=== PATIENT | female | born 1990 | race Caucasian/White ===

== ENCOUNTER → 2016-11-19 | Outpatient (CLI) | payer OTHER | LOC: RESP 17:17 | PROVIDERS: ATTEND Nurse Practitioner Family | DX: E66.9 Obesity, unspecified (principal); R00.0 Tachycardia, unspecified; Z68.39 Body mass index [BMI] 39.0-39.9, adult ==

== ENCOUNTER 2018-07-16 12:01 | Emergency (ER) | payer OTHER ==
[2018-07-16 12:30] VITALS: TEMP 98.4; O2SAT 97
--- NOTE | 2018-07-16 12:32 | ED.PDOC ---
History of Present Illness - General Chief Complaint: CLAIMS CLERK Problem Stated Complaint: vaginal discharge, Time Seen by Provider: 07/16/18 12:21 Source: patient, RN notes reviewed, Vital Signs reviewed Additional Information: 28 YEAR OLD WHITE FEMALE AB2 NOW 11 WEEKS HERE WITH COMPLAINTS OF YELLOW GREEN VAGINAL DISCHARGE DENIES BLEEDING DENIES PASSING TISSUE DENIES ABDOMINAL CRAMPS DENIES SHOULDER PAIN OR DIZZINESS SHE HAS NO OB JUST MOVED FROM [facility] - History of Present Illness Timing/Duration: 1 week Severity: mild Improving Factors: nothing Worsening Factors: nothing Associated Symptoms: denies symptoms Allergies/Adverse Reactions: Allergies NO KNOWN ALLERGY Allergy (Verified 07/08/14 12:42) Home Medications: Ambulatory Orders Vit W/ Ferrous Fumara [] 1 tab PO DAILY 07/16/18 Review of Systems - Review of Systems Constitutional: States: no symptoms reported EENTM: States: no symptoms reported Respiratory: States: no symptoms reported Cardiology: States: no symptoms reported Gastrointestinal/Abdominal: States: no symptoms reported Genitourinary: States: see HPI Musculoskeletal: States: no symptoms reported Skin: States: no symptoms reported Neurological: States: no symptoms reported Endocrine: States: no symptoms reported Past Medical History (General) - Patient Medical History Hx Stroke: No Hx Congestive Heart Failure: No Hx Diabetes: No Surgical History: tonsillectomy - Vaccination History Hx Influenza Vaccination: No - Social History Hx Tobacco Use: Yes - Female History Patient is a Female of Child Bearing Age (10 -59 yrs old): Yes Patient : Yes Hx Gestational Age: 11 Family Medical History - Family History Maternal Living Status: Unknown Hx Family Cancer: Yes - breast, rectal Physical Exam - Physical Exam General Appearance: Alert, Comfortable Eye Exam: bilateral normal Ears, Nose, Throat: hearing grossly normal, normal ENT inspection, normal pharynx Neck: non-tender, full range of motion, supple Respiratory: chest non-tender, lungs clear, normal breath sounds, no respiratory distress, no accessory muscle use Cardiovascular/Chest: normal peripheral pulses, regular rate, rhythm, no edema, no gallop Peripheral Pulses: radial,right: 2+, radial,left: 2+, femoral,right: 2+, femoral ,left: 2+, popliteal,right: 2+, popliteal,left: 2+ Gastrointestinal/Abdominal: normal bowel sounds, non tender, soft Back Exam: normal inspection, no CVA tenderness, no vertebral tenderness Extremity: normal range of motion, non-tender Neurologic: spool fixer II-XII nml as tested, no motor/sensory deficits Skin Exam: normal color, warm/dry Lymphatic: no adenopathy Progress - Results/Orders Results/Orders: Laboratory Tests 07/16/18 07/16/18 07/16/18 12:45 12:50 12:50 WBC 9.6 RBC 4.65 Hgb 13.7 Hct 39.4 MCV 84.8 MCH 29.4 MCHC 34.7 RDW 13.1 Plt Count 229 MPV 8.7 Absolute Neuts (auto) 7.30 H Absolute Lymphs (auto) 1.70 Absolute Monos (auto) 0.40 Absolute Eos (auto) 0.10 Absolute Basos (auto) 0.10 Neutrophils % 76.1 Lymphocytes % 17.6 L Monocytes % 4.3 Eosinophils % 1.3 Basophils % 0.7 Sodium 137 Potassium 3.5 L Chloride 107 Carbon Dioxide 22 Anion Gap 11.5 L BUN 8 Creatinine < 0.40 L BUN/Creatinine Ratio 20.0 Random Glucose 104 Serum Osmolality 272.5 L Calcium 9.3 Total Bilirubin 0.3 AST 27 ALT 34 Alkaline Phosphatase 84 Serum Total Protein 7.3 Albumin 3.7 Globulin 3.6 H Albumin/Globulin Ratio 1.0 L Beta HCG, Quant 267159.0 H Urine Color Yellow Urine Appearance Sl cloudy Urine pH 6.0 Ur Specific [place] 1.025 Urine Protein Negative Urine Glucose (UA) Negative Urine Ketones 40 H Urine Blood Negative Urine Nitrite Negative Urine Bilirubin Negative Urine Urobilinogen 0.2 Ur Leukocyte Esterase Trace H Urine RBC 0 Urine WBC 0-1 Ur Epithelial Cells 5-10 Urine Bacteria 1+ OB USS 12 WEEKS EDC 28 JAN 2019 Departure - Departure Clinical Impression: Normal IUP (intrauterine ) on ultrasound Time of Disposition: 14:56 Disposition: Discharge to Home or Self Care Condition: Good Departure Forms: ED Discharge - Pt. Copy, Patient Portal Self Enrollment Diet: resume usual diet Home Medications: Ambulatory Orders Vit W/ Ferrous Fumara [] 1 tab PO DAILY 07/16/18
--- NOTE | 2018-07-16 15:06 | US ---
EXAM DESCRIPTION: OB ,Early (0-14wks) CLINICAL HISTORY: PAIN COMPARISON: None. TECHNIQUE: Real-time sonographic images of the pelvis are obtained transabdominally. FINDINGS: The uterus measures 16.8 x 7.8 x 1.1 cm. The uterus is normal positioning. Intrauterine gestational sac containing single embryo is seen. Normal amniotic fluid is seen. Placenta location cannot be determined at this time. heart rate is 157 bpm. [place]-rump length measures 5.3 cm consistent with estimated gestational age by ultrasound of 12 weeks 0 days. anatomy is limited. HEVER by LMP is February 03, 2019. HEVER by ultrasound is January 28, 2019. The ovaries are not visualized because of overlying bowel gas. No abnormal adnexal mass or fluid collection is seen. IMPRESSION: There is an early single living intrauterine fetus with estimated gestational age by ultrasound of 12 weeks 0 days. Normal heart rate is noted. No complicating features. Electronically signed by: Derrick Cage MD 07/16/2018 3:04 PM [employer] PROFESSIONAL
[2018-07-16 15:26] VITALS: BP 124/74
== END 2018-07-16 15:26 | disposition home or self-care (01) ==
LOC: ER 12:01
DX: Z34.81 Encounter for supervision of other normal pregnancy, first trimester (principal); Z3A.11 11 weeks gestation of pregnancy; Z87.891 Personal history of nicotine dependence

== ENCOUNTER 2018-08-17 09:31 | Emergency (ER) | payer OTHER ==
[2018-08-17 09:45] VITALS: TEMP 99.5
--- NOTE | 2018-08-17 10:18 | ED.PDOC ---
History of Present Illness - General Chief Complaint: Back Pain or Injury Stated Complaint: low back pain; 16 weeks gestation Time Seen by Provider: 08/17/18 09:41 Source: patient Exam Limitations: no limitations - History of Present Illness Initial Comments: Ana Lee 28 y/o female presently 16 w ega IUP LMP-29 Apr 2018 came to ER with constant sharp non radiating low back pain for the 4 days .No vaginal bleeding,no abdominal pain.Stated had previous back injury as a teenager in high school.Denies recent injury.No fever,no weight loss. Timing/Duration: intermittent, other - see hpi Quality/Severity: sharpness Back Pain Location: lumbar spine Back Pain Radiation: other - none Method of Injury/Prior Injury: other - see hpi Improving Factors: rest Allergies/Adverse Reactions: Allergies NO KNOWN ALLERGY Allergy (Verified 07/08/14 12:42) Home Medications: Ambulatory Orders Vit W/ Ferrous Fumara [] 1 tab PO DAILY 07/16/18 Acetamin W/Cod #3 Tab [Tylenol w/CODEINE #3] 1 ea PO TID PRN #14 tab 08/17/18 Sulfa/Trimeth 800/160 (Ds) Tab [Bactrim DS] 1 tablet PO BID #14 tab 08/17/18 Review of Systems - Review of Systems Musculoskeletal: States: see HPI, back pain All other Systems: Reviewed and Negative, No Change from Baseline Past Medical History (General) - Patient Medical History Hx Stroke: No Hx Congestive Heart Failure: No Hx Diabetes: No Surgical History: tonsillectomy, other - D and C - Vaccination History Hx Influenza Vaccination: No - Social History Hx Tobacco Use: Yes - Female History Hx Last Menstrual Period: 04/29/18 Patient : Yes Expected Date of Delivery:: 01/28/18 Hx Gestational Age: 11 Family Medical History - Family History Maternal Living Status: Unknown Hx Family Cancer: Yes - breast, rectal Physical Exam - Physical Exam General Appearance: Alert, Anxious, Comfortable, No apparent distress Eyes, Ears, Nose, Throat Exam: normal ENT inspection, pharynx normal Neck Exam: non-tender, full range of motion, normal alignment, normal inspection Cardiovascular/Respiratory: regular rate, rhythm, no M/R/G, normal peripheral pulses, no JVD, normal breath sounds Peripheral Pulses: radial,right: 2+, radial,left: 2+ Gastrointestinal/Abdominal: normal bowel sounds, non tender, soft, no organomegaly, other - Gravid uterus ;FHR-160 Back Exam: normal inspection, no CVA tenderness, no vertebral tenderness, muscle spasm - lumbo sacral muscles Extremity Exam: no evidence of injury, normal range of motion Neurologic: no motor/sensory deficits, alert, oriented x 3, other - SLR- negative bilaterally;DTR 2 + knee jerk bilaterally Progress - Progress Progress: 08/17/18 10:21 Vital Signs 08/17/18 09:41 Temperature 99.5 F Pulse Rate [ 112 H left brachial] Respiratory 24 Rate Blood Pressure 116/78 [left brachial] O2 Sat by Pulse 97 Oximetry - Results/Orders Results/Orders: 08/17/18 10:20 URINE CULTURE W/COLONY COUNT Stat 08/17/18 10:42 URINE CULTURE W/COLONY COUNT Stat Laboratory Results - last 24 hr 08/17/18 10:20 Urine Color Yellow Urine Appearance Cloudy Urine pH 7.0 Ur Specific [place] 1.015 Urine Protein Negative Urine Glucose (UA) Negative Urine Ketones Negative Urine Blood Negative Urine Nitrite Negative Urine Bilirubin Negative Urine Urobilinogen 0.2 Ur Leukocyte Esterase Small H Urine RBC 0 Urine WBC 3-5 H Ur Epithelial Cells 5-10 Urine Bacteria 2+ H Departure - Departure Clinical Impression: with 16 completed weeks gestation, Back pain affecting in first trimester Urinary tract infection Qualifiers: Urinary tract infection type: site unspecified Hematuria presence: without hematuria Qualified Code(s): N39.0 - Urinary tract infection, site not specified Time of Disposition: 10:50 Disposition: Discharge to Home or Self Care Condition: Fair Departure Forms: ED Discharge - Pt. Copy, Patient Portal Self Enrollment Instructions: How to Adapt to Physical Changes During , Activity During , and the Flu Prescriptions: Acetamin W/Cod #3 Tab [Tylenol w/CODEINE #3] 1 ea PO TID PRN #14 tab PRN Reason: Pain Sulfa/Trimeth 800/160 (Ds) Tab [Bactrim DS] 1 tablet PO BID #14 tab Home Medications: Ambulatory Orders Vit W/ Ferrous Fumara [] 1 tab PO DAILY 07/16/18 Acetamin W/Cod #3 Tab [Tylenol w/CODEINE #3] 1 ea PO TID PRN #14 tab 08/17/18 Sulfa/Trimeth 800/160 (Ds) Tab [Bactrim DS] 1 tablet PO BID #14 tab 08/17/18 Additional Instructions: NEED TO SIGN UP WITH OB FOR YOUR CARE;Return to ER as needed
[2018-08-17 11:02] VITALS: BP 112/75; O2SAT 100
== END 2018-08-17 11:04 | disposition home or self-care (01) ==
LOC: ER 09:31
DX: O23.42 Unspecified infection of urinary tract in pregnancy, second trimester (principal); M54.5 Low back pain; Z3A.16 16 weeks gestation of pregnancy; Z87.828 Personal history of other (healed) physical injury and trauma; Z87.891 Personal history of nicotine dependence

== ENCOUNTER 2020-09-23 16:46 | Emergency (ER) | payer OTHER ==
[2020-09-23 17:10] VITALS: BP 127/90; TEMP 97.2; O2SAT 99
--- NOTE | 2020-09-23 17:11 | ED.PDOC ---
History of Present Illness - General Chief Complaint: Behavioral / Psych Time Seen by Provider: 09/23/20 17:06 Source: patient, RN notes reviewed, Vital Signs reviewed Exam Limitations: no limitations - History of Present Illness Initial Comments: Pt presents for medication refill. States she has been on Citalopram for 10 [address] and prescribed by Dr[address] Pelayo. She did not realize until today that she t ook her last pill last night. She attempted to call her pharmacy, but has no refills left and was unable to get in touch with her physician. Requesting refill on her medication. Denies any other complaints. Allergies/Adverse Reactions: Allergies NO KNOWN ALLERGY Allergy (Verified 07/08/14 12:42) Home Medications: Ambulatory Orders Vit W/ Ferrous Fumara [] 1 tab PO DAILY 07/16/18 Acetamin W/Cod #3 Tab [Tylenol w/CODEINE #3] 1 ea PO TID PRN #14 tab 08/17/18 Sulfa/Trimeth 800/160 (Ds) Tab [Bactrim DS] 1 tablet PO BID #14 tab 08/17/18 Citalopram Hydrobromide [Citalopram] 10 mg PO DAILY #30 tab 09/23/20 Review of Systems - Review of Systems Constitutional: Denies: chills, fever Respiratory: Denies: cough, short of breath Cardiology: Denies: edema, palpitations, syncope Gastrointestinal/Abdominal: Denies: abdominal pain, diarrhea, nausea Genitourinary: Denies: dysuria, frequency, hematuria Skin: Denies: rash Past Medical History (General) - Patient Medical History Hx Stroke: No Hx Congestive Heart Failure: No Hx Diabetes: No - Vaccination History Hx Influenza Vaccination: No - Social History Hx Tobacco Use: Yes - Female History Hx Last Menstrual Period: 04/29/18 Patient : Yes Expected Date of Delivery:: 01/28/18 Hx Gestational Age: 11 Family Medical History - Family History Maternal Living Status: Unknown Hx Family Cancer: Yes - breast, rectal Physical Exam - Physical Exam General Appearance: Alert, Comfortable, No apparent distress Neck: non-tender, full range of motion, supple Respiratory: chest non-tender, lungs clear, normal breath sounds, no respiratory distress Cardiovascular/Chest: regular rate, rhythm, no murmur Gastrointestinal/Abdominal: non tender, soft, no pulsatile mass Back Exam: no CVA tenderness, no vertebral tenderness Neurologic: no motor/sensory deficits, alert, normal mood/affect Skin Exam: normal color Progress - Progress Progress: 09/23/20 17:11 Pt requesting refill on her depression medication. Exam and VS reassuring. Will refill for 30 days and f/u with pcp in 1-2 days for recheck. srp given. Departure - Departure Clinical Impression: Medication refill Depression Qualifiers: Depression Type: unspecified Qualified Code(s): F32.9 - Major depressive disorder, single episode, unspecified Time of Disposition: 17:13 Disposition: Discharge to Home or Self Care Condition: Good Departure Forms: ED Discharge - Pt. Copy, Patient Portal Self Enrollment Instructions: DI for Psychosis, Depression, Adult (DC) Diet: resume usual diet Activity: increase activity as tolerated Referrals: Jose Pelayo MD [Primary Care Provider] - 1-2 Days Prescriptions: Citalopram Hydrobromide [Citalopram] 10 mg PO DAILY #30 tab Home Medications: Ambulatory Orders Vit W/ Ferrous Fumara [] 1 tab PO DAILY 07/16/18 Acetamin W/Cod #3 Tab [Tylenol w/CODEINE #3] 1 ea PO TID PRN #14 tab 08/17/18 Sulfa/Trimeth 800/160 (Ds) Tab [Bactrim DS] 1 tablet PO BID #14 tab 08/17/18 Citalopram Hydrobromide [Citalopram] 10 mg PO DAILY #30 tab 09/23/20
== END 2020-09-23 17:25 | disposition home or self-care (01) ==
LOC: ER 16:46
DX: Z76.0 Encounter for issue of repeat prescription (principal); F32.9 Major depressive disorder, single episode, unspecified; Z79.899 Other long term (current) drug therapy; Z87.891 Personal history of nicotine dependence